=== PATIENT | male | born 1965 | race Caucasian/White ===

== ENCOUNTER → 2025-03-19 | Outpatient (CLI) | payer OTHER ==
--- NOTE | 2025-03-19 22:17 | HMCIMG ---
EXAM: XR Lumbar Spine, 4 Views total. CLINICAL HISTORY: 60-year-old male arthrodesis status. COMPARISON: None provided. FINDINGS: BONES: Fixation screws are present at L4 and L5. Laminectomy is observed at L5. No significant spondylolisthesis or spondylolysis is seen. No acute fracture or aggressive appearing osseous lesion. Posterior vertebral body alignment is within normal limits in the lumbar spine. DISCS/DEGENERATIVE CHANGES: The disc spaces are preserved. SOFT TISSUES: No prevertebral soft tissue swelling evident in the lumbar spine. The visualized lungs appear clear. IMPRESSION: 1. Status post laminectomy at L5 and fixation screws at L4 and L5. 2. No significant spondylolisthesis or spondylolysis. /[place]
--- NOTE | 2025-03-19 22:25 | HMCIMG ---
EXAM: XR Cervical spine, 5 views and flexion /T/ extension views. CLINICAL HISTORY: 60-year-old male with cervicalgia. COMPARISON: None provided. FINDINGS: BONES: No acute fracture or aggressive appearing osseous lesion. Posterior vertebral body alignment is within normal limits in the cervical spine. No significant spondylolisthesis or spondylolysis on flexion and extension views. DISCS/DEGENERATIVE CHANGES: Mild degenerative changes of the cervical spine. The disc spaces are preserved. SOFT TISSUES: No prevertebral soft tissue swelling evident in the cervical spine. The visualized lungs appear clear. IMPRESSION: 1. No acute abnormality evident in the cervical spine. 2. Mild degenerative changes of the cervical spine. /[employer]
== END | disposition home or self-care (01) ==
LOC: RAH 11:47
PROVIDERS: ATTEND Physical Medicine & Rehabilitation
DX: M47.812 Spondylosis without myelopathy or radiculopathy, cervical region (principal); M54.2 Cervicalgia; Z98.1 Arthrodesis status
CPT/HCPCS: 72050; 72114